=== PATIENT | female | born 1955 | race Caucasian/White ===

== ENCOUNTER → 2023-05-16 | Emergency (ER) | payer OTHER ==
[~2023-05-16] MED LIST: ACETAMINOPHEN 500 MG TAB ONE
--- NOTE | 2023-05-16 20:46 | RAD REPORT ---
EXAM DESCRIPTION: RAD - Tib Fib Right - 05/16/2023 8:10 pm CLINICAL HISTORY: PAIN COMPARISON: No comparisons TECHNIQUE: Right tibia and fibula, 2 views. FINDINGS: No fracture is identified. There is no dislocation or periosteal reaction noted. No acute or suspicious bony finding. Mineralization along the medial and lateral menisci. IMPRESSION: No acute osseous abnormalities. 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
--- NOTE | 2023-05-16 22:36 | RAD REPORT ---
EXAM DESCRIPTION: CT - Knee Right Wo Cont - 05/16/2023 10:01 pm CLINICAL HISTORY: knee pain COMPARISON: Tib Fib Right dated 05/16/2023 TECHNIQUE: Thin cut axial CT imaging of the right knee was performed without IV contrast. Multiplana r reformats were generated and reviewed. All CT scans are performed using dose optimization technique as appropriate and may include automated exposure control or mA/KV adjustment according to patient size. FINDINGS: Depressed fracture of the peripheral lateral tibial condyle articular surface, with the de pressed segment measuring 2.3 cm in greatest AP dimension and 12 mm in greatest transverse dimension. The involved segment is depressed for approximately 2-3 mm. No displaced or loose fragments. Mineralization along the menisci medially and laterally, and probably along the tibial PCL attachment , may relate to depositional arthropathy. Moderate joint effusion. Mild degenerative changes throughout the articular compartments most notably with marginal spurring o f the patella. Bipartite patella configuration noted. Mild lateral patellar subluxation noted, could be of developmental in nature although tear of the med ial patellofemoral ligament cannot be excluded on CT. IMPRESSION: Depressed fracture of the peripheral lateral tibial condyle articular surface as above. Moderate joint effusion. Mineralization of the lateral and medial menisci and probably along the tibial PCL attachment, may re late to depositional arthropathy such as CPPD. Other findings as above. If there is persistent clinical concern for ligamentous or meniscal injury, additional evaluation by MRI would be more helpful.
--- NOTE | 2023-05-16 23:20 | ER ---
Nurse's Notes [facility] Name: Tamara Patton Age: 67 yrs Sex: Female : 1955 Arrival Date: 05/16/2023 Time: 18:41 Bed 10 Private MD: Diagnosis: Displaced fracture of lateral condyle of right tibia Presentation: 05/15 18:56 Chief complaint: Patient states: R leg pain s/p getting hit by her dog, then fell over. ll1 No LOC. Mondamin a crack just below the knee. Coronavirus screen: Client denies travel out of the [place] in the last 14 days. At this time, the client does not indicate any symptoms associated with coronavirus-19. Ebola Screen: Patient denies travel to an Ebola-affected area in the 21 days before illness onset. Initial Sepsis Screen: Does the patient meet any 2 criteria? No. Patient's initial sepsis screen is negative. Does the patient have a suspected source of infection? No. Patient's initial sepsis screen is negative. Risk Assessment: Do you want to hurt yourself or someone else? Patient reports no desire to harm self or others. Onset of symptoms was May 16, 2023. 18:56 Method Of Arrival: Wheelchair ll1 18:56 Acuity: SARITA 4 ll1 Triage Assessment: 19:00 General: Appears in no apparent distress. Behavior is calm, cooperative, appropriate ll1 for age. Pain: Complains of pain in R knee Pain currently is 3 out of 10 on a pain scale. Musculoskeletal: Circulation, motion, and sensation intact. Capillary refill < 3 seconds. Injury Description: Bruise. Historical: - Allergies: 18:57 erythromycin; ll1 18:57 Metoprolol Tartrate; ll1 18:57 "serotonin uptakes"; ll1 18:57 Advil; ll1 - Home Meds: 18:57 Xanax 0.25 mg Oral tablet [Active]; dicyclomine 10 mg Oral capsule [Active]; ll1 - PMHx: 18:57 Anxiety; IBS; ll1 - PSHx: 18:57 arm SX; ll1 - Immunization history:: Adult Immunizations up to date. - Social history:: Smoking status: Patient denies any tobacco usage or history of. Screenin:29 [facility] ED Fall Risk Assessment (Adult) History of falling in the last 3 months, vc1 including since admission Yes- physiologic fall (2 pts) Confusion or Disorientation No (0 pts) Intoxicated or Sedated No (0 pts) Impaired Gait No (0 pts) Mobility Assist Device Used No (0 pt) Altered Elimination No (0 pt) Score/Fall Risk Level 0 - 2 = Low Risk Oriented to surroundings, Maintained a safe environment, Educated pt \\T\\ family on fall prevention, incl call for assistance when getting out of bed. Abuse screen: Denies threats or abuse. Nutritional screening: No deficits noted. Tuberculosis screening: No symptoms or risk factors identified. Assessment: 19:28 General: Pt states she wants to wait on the Tylenol. vc1 22:10 General: Appears in no apparent distress. uncomfortable, Behavior is calm, cooperative. iw Pain: Complains of pain in right leg. Neuro: Level of Consciousness is awake, alert, obeys commands, Oriented to person, place, time, situation, Moves all extremities. Cardiovascular: Patient's skin is warm and dry. Respiratory: Respiratory effort is even, unlabored, Respiratory pattern is regular, symmetrical. Derm: Skin is intact, is healthy with good turgor. Musculoskeletal: Range of motion: limited in right knee. 23:45 Reassessment: No changes from previously documented assessment. Patient states feeling kb3 better. Vital Signs: 18:56 BP 143 / 72; Pulse 92; Resp 17; Temp 97.3; Pulse Ox 100% on R/A; Pain 3/10; ll1 22:22 BP 140 / 70; Pulse 87; Resp 16; Pulse Ox 98% on R/A; iw 23:45 BP 151 / 74; Pulse 74; Resp 18; Temp 98; Pulse Ox 100% ; Pain 3/10; kb3 18:56 Pain Scale: Adult ll1 23:45 Pain Scale: Adult kb3 ED Course: 18:43 Patient arrived in ED. rg4 18:46 Arm band placed on. iw 18:53 Ezekiel Vegas PA is PHCP. cp 18:53 Quinton Winters MD is Attending Physician. cp 18:57 Triage completed. ll1 19:30 Patient has correct armband on for positive identification. vc1 19:32 EKG completed in triage. Results shown to MD. EKG completed in triage. Results shown to vc1 MD. Antipyretics given from triage as ordered by an ER provider. 20:12 XRAY Tib Fib RIGHT In Process Unspecified. EDMS 20:40 Juan David Dobbs MD is Attending Physician. cp 22:03 Knee Right Wo Cont In Process Unspecified. EDMS 22:21 Ryann Rahman, RN is Primary Nurse. iw 23:45 Provided Education on: Splint care, OTC pain medications as needed, ortho follow up kb3 upon returning home next week, crutch training. 23:45 No provider procedures requiring assistance completed. Patient did not have IV access kb3 during this emergency room visit. 23:45 Crutch training done. Piotr wrap to right knee Knee immobilizer applied on right knee. kb3 Administered Medications: 22:30 Drug: Acetaminophen PO 1000 mg PO once Route: PO; kb3 23:45 Follow up: Response: Pain is decreased kb3 Medication: 19:29 VIS not applicable for this client. vc1 Outcome: 23:20 Discharge ordered by MD. cp 23:45 Discharged to home via wheelchair, with crutches, kb3 23:45 Condition: improved 23:45 Discharge instructions given to patient, family, Instructed on discharge instructions, follow up and referral plans. medication usage, crutch walking, Demonstrated understanding of instructions, follow-up care, medications, crutch walking, 05/16 00:06 Patient left the ED. kb3 Signatures: Dispatcher [employer] EDMS Ryann Rahman, RN RN iw Ezekiel Vegas, Shilpa Ruiz cp rg4 Bobby Purvis, RN RN ll1 Leslie Agudelo RN RN vc1 Italia Kirby, SOFY RN kb3
--- NOTE | 2023-05-16 23:20 | EDPHYS ---
Physician Documentation [facility] Name: Tamara Patton Age: 67 yrs Sex: Female : 1955 Arrival Date: 05/16/2023 Time: 18:41 Bed 10 Private MD: ED Physician Juan David Dobbs HPI: 05/15 19:00 This 67 yrs old Female presents to ER via Wheelchair with complaints of Leg Injury. cp 19:00 The patient presents with an injury, pain, that is acute. The complaints affect the cp right knee. Context: resulted from a direct blow, from pet dog running into side of knee, the patient is not able to bear weight, must have assistance, from family. Onset: The symptoms/episode began/occurred today. Associated signs and symptoms: The patient has no apparent associated signs or symptoms. Historical: - Allergies: 18:57 erythromycin; ll1 18:57 Metoprolol Tartrate; ll1 18:57 "serotonin uptakes"; ll1 18:57 Advil; ll1 - Home Meds: 18:57 Xanax 0.25 mg Oral tablet [Active]; dicyclomine 10 mg Oral capsule [Active]; ll1 - PMHx: 18:57 Anxiety; IBS; ll1 - PSHx: 18:57 arm SX; ll1 - Immunization history:: Adult Immunizations up to date. - Social history:: Smoking status: Patient denies any tobacco usage or history of. ROS: 19:05 MS/extremity: Positive for pain, swelling, tenderness, of the right knee, Negative for cp decreased range of motion, deformity, 19:05 Eyes: Negative for injury, pain, redness, and discharge, cp 19:05 Constitutional: Negative for body aches, chills, fever, poor PO intake, 19:05 ENT: Negative for drainage from ear(s), ear pain, sore throat, difficulty swallowing, difficulty handling secretions, 19:05 Cardiovascular: Negative for chest pain, palpitations, 19:05 Respiratory: Negative for cough, shortness of breath, wheezing, 19:05 Abdomen/GI: Negative for abdominal pain, vomiting, diarrhea, constipation, 19:05 Neuro: Negative for altered mental status, dizziness, headache, loss of consciousness, numbness, syncope, weakness, 19:05 All other systems are negative, Exam: 19:10 Constitutional: The patient appears in no acute distress, alert, awake, cp non-diaphoretic, non-toxic, well developed, well nourished, uncomfortable, 19:10 Head/Face: Normocephalic, atraumatic. cp 19:10 Eyes: Periorbital structures: appear normal, Conjunctiva: normal, no exudate, no injection, Lids and lashes: appear normal, bilaterally, 19:10 Neck: C-spine: vertebral tenderness, is not appreciated, crepitus, is not appreciated, ROM/movement: is normal, is supple, without pain, no range of motions limitations, 19:10 Chest/axilla: Inspection: normal, 19:10 Cardiovascular: Rate: normal, Rhythm: regular, Edema: is not appreciated, JVD: is not appreciated, 19:10 Respiratory: the patient does not display signs of respiratory distress, Respirations: normal, no use of accessory muscles, no retractions, labored breathing, is not present, Breath sounds: are clear throughout, no decreased breath sounds, no stridor, no wheezing, 19:10 Abdomen/GI: Inspection: abdomen appears normal, Palpation: abdomen is soft and non-tender, in all quadrants, 19:10 Back: pain, is absent, ROM is normal, 19:10 Musculoskeletal/extremity: Extremities: grossly normal except: noted in the right knee: pain and tenderness lateral side of right knee, pain with passive ROM, Vital Signs: 18:56 BP 143 / 72; Pulse 92; Resp 17; Temp 97.3; Pulse Ox 100% on R/A; Pain 3/10; ll1 22:22 BP 140 / 70; Pulse 87; Resp 16; Pulse Ox 98% on R/A; iw 23:45 BP 151 / 74; Pulse 74; Resp 18; Temp 98; Pulse Ox 100% ; Pain 3/10; kb3 18:56 Pain Scale: Adult ll1 23:45 Pain Scale: Adult kb3 Procedures: 23:45 Splinting: Splint applied to right knee using knee immobilizer, applied by nurse. cp Examined by me, post splint application: neurovascular intact, Patient tolerated well. 23:45 Crutch training provided to patient and/or family. Return demonstration given. cp MDM: 18:53 Patient medically screened. cp 23:00 Differential diagnosis: dislocation, open fracture, closed fracture, contusion. Data cp reviewed: vital signs, nurses notes, radiologic studies, CT scan, plain films, and as a result, I will discharge patient. I considered the following discharge prescriptions or medication management in the emergency department Medications were administered in the Emergency Department. See MAR patient requested tylenol for pain. Counseling: I had a detailed discussion with the patient and/or guardian regarding the historical points, exam findings, and any diagnostic results supporting the discharge/admit diagnosis, radiology results, the need for outpatient follow up, for definitive care, a orthopedic surgeon, to return to the emergency department if symptoms worsen or persist or if there are any questions or concerns that arise at home. Response to treatment: the patient's symptoms have markedly improved after treatment, and as a result, I will discharge patient. 05/15 18:58 Order name: XRAY Tib Fib RIGHT; Complete Time: 21:51 cp 05/15 21:52 Interpretation: Report reviewed. cp 05/15 21:12 Order name: Knee Right Wo Cont; Complete Time: 22:39 EDMS 05/15 22:40 Interpretation: Report Reviewed. cp 05/15 20:36 Order name: Knee Immobilizer; Complete Time: 00:05 cp 05/15 22:40 Order name: Crutches; Complete Time: 00:05 cp 05/15 22:59 Order name: Piotr wrap-joint; Complete Time: 00:05 cp Administered Medications: 22:30 Drug: Acetaminophen PO 1000 mg PO once Route: PO; kb3 23:45 Follow up: Response: Pain is decreased kb3 Disposition: 05/16 06:15 Co-signature as Attending Physician, Juan David Dobbs MD I agree with the assessment sp4 and plan of care. I reviewed the patient's care provided by the Advanced Practice Provider and agree with the diagnosis and treatment plan. Disposition Summary: 05/16/23 23:20 Discharge Ordered Notes: Location: Home cp Problem: new cp Symptoms: have improved cp Condition: Stable cp Diagnosis - Displaced fracture of lateral condyle of right tibia cp Followup: cp - With: Private Physician - When: 1 week - Reason: Recheck today's complaints Discharge Instructions: - Discharge Summary Sheet cp - How to Use a Knee Immobilizer cp - Displaced Tibial Plateau Fracture cp Forms: - Medication Reconciliation Form cp - Thank You Letter cp - Antibiotic Education cp - Prescription Opioid Use cp - Patient Portal Instructions cp - Leadership Thank You Letter cp Signatures: Dispatcher [employer] EDMS Ezekiel Vegas PA PA cp Lewis, Lynsay RN RN ll1 Italia Kirby RN RN kb3 Juan David Dobbs MD MD sp4 Corrections: (The following items were deleted from the chart) 05/15 21:12 20:43 CT RIGHT KNEE WO CONTRAST ordered. EDMS EDMS
[2023-05-17 00:35] VITALS: BP 151/74; TEMP 98; O2SAT 100
== END ==
LOC: ER 18:41
DX: S82.121A Displaced fracture of lateral condyle of right tibia, initial encounter for closed fracture (principal); Z88.3 Allergy status to other anti-infective agents; Z88.6 Allergy status to analgesic agent; Z88.8 Allergy status to other drugs, medicaments and biological substances
CPT/HCPCS: 73700